=== PATIENT | female | born 1975 | race Caucasian/White ===

== ENCOUNTER 2017-04-25 19:15 | Inpatient (IN) | payer OTHER ==
[2017-04-25] MEDS ORDERED: Midazolam* 1 MG/ML 5 ML VIAL (5 MG) ONE (19:35)
[2017-04-25] MEDS ORDERED: KETAMINE HCL* 50 MG/ML 10 ML VIAL ONE (19:35)
[2017-04-25 19:41] LABS: Hematocrit 28 % (35-47); Hemoglobin 9.2 g/dl (12.0-16.0); Mean Corpuscular HGB Conc 33 g/dl (31-36); Mean Corpuscular Hemoglobin 27 pg (27-31); Mean Corpuscular Volume 81 fL (80-97); Mean Platelet Volume 9 um3 (7.4-10.4); Red Blood Count 3.42 10^6/ul (4.0-5.4); Red Cell Distribution Width 15 % (10.5-15); White Blood Count 27.8 10^3/ul (3.5-10.8)
[2017-04-25 19:46] LABS: Comments Flag Yes
[2017-04-25 19:47] LABS: Add Diff/Slide Review? Slide Review Added
[2017-04-25] MEDS ORDERED: HETASTARCH 6% IV ONE (20:00)
[2017-04-25 20:07] LABS: Schistocytes ABSENT
[2017-04-25 20:08] LABS: Fibrinogen 423 mg/dL (110.8-404.3)
[2017-04-25] MEDS ORDERED: Succinylcholine* 20 MG/ML 10 ML VIAL ONE (20:26)
[2017-04-25] MEDS ORDERED: OXYTOCIN* 10 UNITS/ML 1 ML VIAL ONE (20:26)
[2017-04-25] MEDS ORDERED: EPHEDrine (Pressors)* 50 MG/ML VIAL ONE (20:26)
[2017-04-25] MEDS ORDERED: Phenylephrine IV* 40 MCG/ML 10 ML SYRINGE ONE (20:26)
[2017-04-25] MEDS ORDERED: Methylergonovine INJ* 0.2 MG/ML 1ML AMP ONE (20:31)
[2017-04-25] MEDS ORDERED: Misoprostol TAB* 200 MCG ONE (20:31)
[2017-04-25] MEDS ORDERED: ceFOXitin 2 GM IVPREMIX* 2 GM/50 ML BAG ONE (20:32)
[2017-04-25] MEDS ORDERED: Methylergonovine INJ* 0.2 MG/ML 1ML AMP IM ONE (20:38)
[2017-04-25] MEDS ORDERED: Misoprostol TAB* 200 MCG PR ONE (20:38)
[2017-04-25] MEDS ORDERED: Measles, Mumps,Rubella VACC* 0.5 ML/VIAL SUBCUT ONE (20:39)
[2017-04-25] MEDS ORDERED: Acetaminophen TAB* 325 MG PO PRN (20:39)
[2017-04-25] MEDS ORDERED: Dibucaine 1% 28.35 GM TUBE PR PRN (20:39)
[2017-04-25] MEDS ORDERED: Glycerin ADULT SUPP PR PRN (20:39)
[2017-04-25] MEDS ORDERED: Witch Hazel PAD* JAR TOPICAL PRN (20:39)
[2017-04-25] MEDS: ceFOXitin 2 GM IVPREMIX* 2 GM/50 ML BAG IVPB SCH (20:39)
[2017-04-25] MEDS ORDERED: Oxytocin in LR* 20 UNITS/1,000 ML BAG IVPB ONE (20:45)
[2017-04-25] MEDS ORDERED: Simethicone TAB* 80 MG TAB.CHEW PO SCH (21:00)
[2017-04-25] MEDS ORDERED: Oxytocin in LR* 20 UNITS/1,000 ML BAG IVPB SCH (21:00)
[2017-04-26 00:25] LABS: Hematocrit 22 % (35-47); Hemoglobin 7.5 g/dl (12.0-16.0); Mean Corpuscular HGB Conc 34 g/dl (31-36); Mean Corpuscular Hemoglobin 28 pg (27-31); Mean Corpuscular Volume 82 fL (80-97); Mean Platelet Volume 9 um3 (7.4-10.4); Red Blood Count 2.71 10^6/ul (4.0-5.4); Red Cell Distribution Width 16 % (10.5-15); White Blood Count 18.9 10^3/ul (3.5-10.8)
[2017-04-26] MEDS: Ibuprofen TAB* 600 MG PO PRN ×3 (01:47→20:08)
[2017-04-26] MEDS: Docusate CAP* 100 MG PO SCH ×4 (02:10→20:08)
[2017-04-26] MEDS: ceFOXitin 2 GM IVPREMIX* 2 GM/50 ML BAG IVPB SCH (05:03)
[2017-04-26 06:53] LABS: Hematocrit 20 % (35-47); Hemoglobin 6.9 g/dl (12.0-16.0); Mean Corpuscular HGB Conc 34 g/dl (31-36); Mean Corpuscular Hemoglobin 28 pg (27-31); Mean Corpuscular Volume 81 fL (80-97); Mean Platelet Volume 9 um3 (7.4-10.4); Red Blood Count 2.52 10^6/ul (4.0-5.4); Red Cell Distribution Width 16 % (10.5-15); White Blood Count 15.8 10^3/ul (3.5-10.8)
[2017-04-26 06:58] LABS: Comments Flag Yes
[2017-04-26 06:59] LABS: Add Diff/Slide Review? Slide Review Added
[2017-04-26] MEDS: Ferrous Gluconate TAB* 324 MG TAB PO SCH ×2 (08:52→20:08)
[2017-04-26 19:40] LABS: Hematocrit 25 % (35-47); Hemoglobin 8.5 g/dl (12.0-16.0); Mean Corpuscular HGB Conc 34 g/dl (31-36); Mean Corpuscular Hemoglobin 28 pg (27-31); Mean Corpuscular Volume 82 fL (80-97); Mean Platelet Volume 9 um3 (7.4-10.4); Red Blood Count 3.04 10^6/ul (4.0-5.4); Red Cell Distribution Width 16 % (10.5-15); White Blood Count 14.9 10^3/ul (3.5-10.8)
--- NOTE | 2017-04-27 03:27 | OP ---
DATE OF OPERATION: 04/25/17 - ROOM #113 DATE OF : 79 SURGEON: Amarilys Bauer MD PAN WASHER: Bridger Galvez MD ANESTHESIOLOGIST: Leo Alfred MD ANESTHESIA: Sedation. PRE-OP DIAGNOSES: Vaginal after section, home delivery, hemorrhage, retained placenta, fibroid uterus. POST-OP DIAGNOSES: Vaginal after section, home delivery, hemorrhage, retained placenta, fibroid uterus. OPERATIVE PROCEDURE: Manual exploration of the uterus and manual extraction of placenta, vaginal repair. INDICATIONS: The patient was brought to the Labor and Delivery by emergency services after greater than 2 hours after the patient had a vaginal at home after section. The ambulance was called an hour and a half after and transported to the patient immediately to the hospital. The patient and partner were aware of the dire circumstance. The patient was consented for manual extraction of the placenta and possible hysterectomy given her prior history of section with problems with placentation at the and bleeding at the with the delivery in 2007. The patient was taken to the operating room after appropriate consents were obtained and a complete review of risks and benefits of the procedure. FINDINGS: Revealed a densely adherent placenta to the fundus of the uterus near fibroid, anterior placentation. Once removal of the placenta was carried out, 3 L of clotted blood was extracted with the placenta, enlarged fibroid uterus, second-degree perineal laceration and first-degree bilateral periurethral laceration. FLUIDS: 2 units of packed red blood cells, 500 cc of hetastarch, and 3200 cc of crystalloid. URINE OUTPUT: 100 cc of clear yellow urine. ESTIMATED BLOOD LOSS: Greater than 3 L. COMPLICATIONS: None apparent. DISPOSITION: Stable to recovery room. DESCRIPTION OF PROCEDURE: The patient was transferred to the operating room. Legs were placed in [place] stirrups. The perineum was prepped and draped in the sterile standard fashion and once appropriate anesthesia was obtained, manual extraction was carried out of the placenta. Please note that the placenta was adherent to the fundus of the uterus and once the placenta was removed, greater than 3 L of clots were extracted with the placenta. Placenta went to Pathology. After removal of the placenta, the uterine cavity was re- explored and noted to be free of any membranes or placental tissue and minimal bleeding was noted. The attention was then focused to the perineal laceration, second degree, which was repaired using 2-0 Vicryl in a standard fashion and bilateral periurethral lacerations, which were repaired using 4-0 Vicryl in a subcuticular fashion for complete approximation of the labia minora lacerations. 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 Once the placenta extraction was carried out, the patient had minimal bleeding. All sponge, needle, blade counts were correct at the case. The patient tolerated the procedure well and went to recovery room in stable condition. [id number] #: [id number] MTDD
[2017-04-27] MEDS: Ibuprofen TAB* 600 MG PO PRN ×2 (05:03→11:11)
[2017-04-27 06:29] LABS: Hematocrit 23 % (35-47); Hemoglobin 7.8 g/dl (12.0-16.0); Mean Corpuscular HGB Conc 34 g/dl (31-36); Mean Corpuscular Hemoglobin 28 pg (27-31); Mean Corpuscular Volume 82 fL (80-97); Mean Platelet Volume 9 um3 (7.4-10.4); Red Blood Count 2.79 10^6/ul (4.0-5.4); Red Cell Distribution Width 16 % (10.5-15); White Blood Count 13.3 10^3/ul (3.5-10.8)
[2017-04-27 08:04] VITALS: BP 130/67
[2017-04-27] MEDS: Ferrous Gluconate TAB* 324 MG TAB PO SCH (09:10)
[2017-04-27] MEDS: Docusate CAP* 100 MG PO SCH (09:10)
== END 2017-04-27 13:10 | disposition home or self-care (01) | DRG 544 ==
LOC: MCHOB 19:15
PROVIDERS: ADMIT Obstetrics & Gynecology; ATTEND Obstetrics & Gynecology
PROC: 10D17Z9 Manual Extraction of Products of Conception, Retained, Via Natural or Artificial Opening (ICD-10-PCS; principal; 2017-04-25)
PROC: 0KQM0ZZ Repair Perineum Muscle, Open Approach (ICD-10-PCS; 2017-04-25)
DX: O72.2 Delayed and secondary postpartum hemorrhage (principal); O70.1 Second degree perineal laceration during delivery
CPT/HCPCS: 36415; 85025; 85049; 85362; 85384; 85610; 85730; 86850; 86900; 86901; 86922; 88307; A9270-GY; J0330; J0694; J2210; J2250; J2590; P9040